=== PATIENT | male | born 1980 | race Caucasian/White ===

== ENCOUNTER 2022-07-15 18:19 | Emergency (ER) | payer OTHER, BC ==
[2022-07-15] MEDS: Acetaminophen/HYDROcodone 325-10 MG Tab PO ONE (18:58)
[2022-07-15] MEDS: Orphenadrine 60 MG/2 ML Inj IM ONE (18:58)
[2022-07-15] MEDS: Take Home: Cyclobenzaprine 10 MG Tab, 4 Tab Pack PO ONE (20:05)
[2022-07-15] MEDS: Take Home: Acetaminophen/HYDROcodone 325-10 MG, 5 Tab Pack PO ONE (20:05)
== END 2022-07-15 20:12 | disposition home or self-care (01) ==
LOC: VM.ED 18:19
DX: S22.41XA Multiple fractures of ribs, right side, initial encounter for closed fracture (principal); Z88.0 Allergy status to penicillin; Z79.899 Other long term (current) drug therapy; W18.40XA Slipping, tripping and stumbling without falling, unspecified, initial encounter
CPT/HCPCS: 71101; 96372; 99283; A9270; J2360